=== PATIENT | female | born 1990 | race Hispanic/Latino ===

== ENCOUNTER 2018-10-12 10:15 | Emergency (ER) | payer MEDICAID ==
[2018-10-12] MEDS ORDERED: DECADRON IV ONE (10:35)
[2018-10-12] MEDS ORDERED: ZOFRAN IV ONE ×2 (10:35→13:21)
[2018-10-12] MEDS ORDERED: TORADOL IV ONE (10:35)
[2018-10-12] MEDS ORDERED: MORPHINE IV ONE ×3 (10:35→13:21)
--- NOTE | 2018-10-12 10:48 | Emergency Department Report ---
ED Back Pain/Injury HPI - General Chief Complaint: Back Pain/Injury Stated Complaint: BACK PAIN EXTREME Time Seen by Provider: 10/12/18 10:33 Source: patient Limitations: No Limitations - History of Present Illness Initial Comments: Mrs. Vásquez is a 28 yo female with hx of osteogenesis imperfecta who presents with severe left back pain. Sudden onset this morning. 10/10 sharp pain. No trauma. +nausea. She thinks she may have a kidney stone. MD Complaint: back pain -: Sudden, This morning Similar Symptoms Previously: No Place: home Severity: severe Severity scale (0 -10): 10 Quality: sharp Consistency: constant Improves With: none Worsens With: none Context: other (no previous hx) Associated Symptoms: nausea/vomiting - Related Data Previous Rx's Medication Instructions Recorded Last Taken Type Ibuprofen [Motrin 800 MG tab] 800 mg PO Q6H 5 Days #20 tablet 10/12/18 Unknown Rx Tamsulosin [Flomax] 0.4 mg PO QDAY 5 Days #5 cap 10/12/18 Unknown Rx cephALEXin [Keflex] 500 mg PO Q6HR 7 Days #28 capsule 10/12/18 Unknown Rx oxyCODONE /ACETAMINOPHEN [Percocet 1 tab PO Q6HR PRN #15 tablet 10/12/18 Unknown Rx 5/325] Allergies Allergy/AdvReac Type Severity Reaction Status Date / Time latex Allergy Rash Verified 10/12/18 10:20 ED Review of Systems ROS: Stated complaint: BACK PAIN EXTREME Other details as noted in HPI Comment: All other systems reviewed and negative Constitutional: denies: fever, malaise ED Past Medical Hx - Past Medical History Previous Medical History?: Yes Additional medical history: Osteogenous imperfecta - Surgical History Hx Appendectomy: Yes Additional Surgical History: Broken femur - Social History Smoking Status: Current Every Day Smoker Substance Use Type: None - Medications Home Medications: Home Medications Medication Instructions Recorded Confirmed Last Taken Type Ibuprofen [Motrin 800 MG tab] 800 mg PO Q6H 5 Days #20 tablet 10/12/18 Unknown Rx Tamsulosin [Flomax] 0.4 mg PO QDAY 5 Days #5 cap 10/12/18 Unknown Rx cephALEXin [Keflex] 500 mg PO Q6HR 7 Days #28 capsule 10/12/18 Unknown Rx oxyCODONE /ACETAMINOPHEN [Percocet 1 tab PO Q6HR PRN #15 tablet 10/12/18 Unknown Rx 5/325] ED Physical Exam - General Limitations: No Limitations General appearance: alert, in no apparent distress, other (appears uncomfortable, rolling in chair, laying on elbows with back extended, steady gait, able to transfer chair, walked into room) - Head Head exam: Present: atraumatic, normocephalic - Eye Eye exam: Present: normal appearance - ENT ENT exam: Present: mucous membranes moist - Neck Neck exam: Present: normal inspection, full ROM - Respiratory Respiratory exam: Present: normal lung sounds bilaterally. Absent: respiratory distress, wheezes, rales, rhonchi - Cardiovascular Cardiovascular Exam: Present: regular rate, normal rhythm, normal heart sounds. Absent: systolic murmur, diastolic murmur, rubs, gallop - GI/Abdominal GI/Abdominal exam: Present: soft, normal bowel sounds. Absent: distended, tenderness, guarding, rebound - Extremities Exam Extremities exam: Present: normal inspection - Back Exam Back exam: Present: normal inspection, full ROM. Absent: tenderness, CVA tenderness (R), CVA tenderness (L), muscle spasm, paraspinal tenderness, vertebral tenderness - Neurological Exam Neurological exam: Present: alert, oriented X3, normal gait - Psychiatric Psychiatric exam: Present: agitated, anxious - Skin Skin exam: Present: warm, dry, intact, normal color. Absent: rash ED Course Vital Signs 10/12/18 10/12/18 10/12/18 10:21 10:39 11:35 Temperature 97.7 F Pulse Rate 62 60 55 L Respiratory 24 20 20 Rate Blood Pressure 144/91 142/77 [Left] O2 Sat by Pulse 99 99 94 Oximetry ED Medical Decision Making - Lab Data Result diagrams: 10/12/18 Unknown 10/12/18 Unknown - Radiology Data Radiology results: report reviewed - Medical Decision Making Claudia presents with renal colic. CT scan reveals 3 mm calculus proxmial ureter, bilateral nonobstructive nephrolithiasis Pain has improved. rx: percocet ibuprofen keflex No signs of SIRS. Leukocytosis noted 19K. Claudia knows to return for fever or severe pain Critical care attestation.: If time is entered above; I have spent that time in minutes in the direct care of this critically ill patient, excluding procedure time. ED Disposition Clinical Impression: Renal colic on left side, Acute left flank pain, Kidney stone on left side Disposition: - TO HOME OR SELFCARE Is pt being admited?: No Does the pt Need Aspirin: No Condition: Stable Instructions: Kidney Stones (ED), Renal Colic (ED), How to Strain Your Urine (ED) Prescriptions: Tamsulosin [Flomax] 0.4 mg PO QDAY 5 Days #5 cap cephALEXin [Keflex] 500 mg PO Q6HR 7 Days #28 capsule Ibuprofen [Motrin 800 MG tab] 800 mg PO Q6H 5 Days #20 tablet oxyCODONE /ACETAMINOPHEN [Percocet 5/325] 1 tab PO Q6HR PRN #15 tablet PRN Reason: Pain Referrals: GRACIELA TANNER MD [Staff Physician] - 3-5 Days
[2018-10-12 11:03] LABS: Basophils # (Auto) 0.1 K/mm3 (0.0-0.1); Basophils % (Auto) 0.4 % (0.0-1.8); Eosinophils # (Auto) 0.4 K/mm3 (0.0-0.4); Eosinophils % (Auto) 1.9 % (0.0-4.3); Hematocrit 45.1 % (30.3-42.9); Hemoglobin 15.3 gm/dl (10.1-14.3); Lymphocytes # (Auto) 2.7 K/mm3 (1.2-5.4); Lymphocytes % (Auto) 13.9 % (13.4-35.0); Mean Corpuscular HGB Conc 34 % (30-34); Mean Corpuscular Volume 88 fl (79-97); Monocytes # (Auto) 0.8 K/mm3 (0.0-0.8); Monocytes % (Auto) 4.2 % (0.0-7.3); Platelet Count 361 K/mm3 (140-440); Red Cell Distribution Width 14.1 % (13.2-15.2)
[2018-10-12 11:36] VITALS: BP 142/77
[2018-10-12 12:01] LABS: BUN/Creatinine Ratio 16; Blood Urea Nitrogen 14 mg/dL (7-17); Calcium 9.3 mg/dL (8.4-10.2); Hemolysis Index 7
--- NOTE | 2018-10-12 12:50 | XRay Report ---
Thoracic spine, 3 views INDICATION: back pain. COMPARISON: None. IMPRESSION: Normal alignment. No significant discogenic DJD or facet arthropathy. No acute osseous or soft tissue abnormality. Lumbosacral spine, 3 views INDICATION: back pain. COMPARISON: None. IMPRESSION: Normal alignment. No significant discogenic DJD or facet arthropathy. No acute osseous or soft tissue abnormality. Signer Name: Toni Gasca Jr, MD Signed: 10/12/2018 12:46 PM Workstation Name: [id number]
--- NOTE | 2018-10-12 13:06 | Cat Scan Report ---
CT of the abdomen and pelvis without contrast INDICATION / CLINICAL INFORMATION: Severe back pain starting this morning with nausea and vomiting. TECHNIQUE: All CT scans at this location are performed using CT dose reduction for ALARA by means of automated e xposure control. COMPARISON: None available. FINDINGS: ABDOMEN: There is moderate left pelvocaliectasis and proximal ureterectasis. There is mild left perin ephric and periureteral soft tissue stranding. There are several small nonobstructive renal calculi b ilaterally, the largest of which measures approximately 4 mm on the right. There is a 3 mm calculus i n the proximal left ureter at the level of the L3 transverse process. There is moderate generalized decreased density of the liver parenchyma compared to the spleen with s paring adjacent to the gallbladder and melanie hepatis. The gallbladder, bile ducts, pancreas, spleen, adrenal glands and bowel are normal. No adenopathy is seen. The lung bases are clear. PELVIS: The distal ureters and urinary bladder are normal. The uterus and adnexal regions are unremar kable. There is no evidence of appendicitis or diverticulitis. No abnormal mass or fluid collection i s seen. I do not identify a hernia. No acute osseous abnormality is identified. IMPRESSION: 1. 3 mm calculus in the left ureter at the L3 level is causing moderate hydronephrosis. 2. Minimal bilateral nonobstructive nephrolithiasis. 3. Moderate diffuse fatty infiltration of the liver. Signer Name: Magan Alvarado MD Signed: 10/12/2018 1:02 PM Workstation Name: [id number]
[2018-10-12] MEDS ORDERED: KEFLEX PO ONE (13:15)
[2018-10-12] MEDS ORDERED: PERCOCET 5/325 PO ONE (13:15)
[2018-10-12] MEDS ORDERED: IBUPROFEN PO ONE (13:15)
== END 2018-10-12 14:50 | disposition home or self-care (01) ==
LOC: ED 10:15
DX: N20.0 Calculus of kidney (principal); F17.200 Nicotine dependence, unspecified, uncomplicated; Z90.49 Acquired absence of other specified parts of digestive tract; Z79.899 Other long term (current) drug therapy; Z91.040 Latex allergy status
CPT/HCPCS: 36415; 72070; 72100; 74176; 80048; 83690; 84702; 85025; 96374; 96375; 96376; 99284; J1100; J1885; J2270; J2405